=== PATIENT | male | born 1945 | race Caucasian/White ===

== ENCOUNTER 2022-08-07 02:19 | Emergency (ER) | payer MEDICARE, SELFPAY ==
[2022-08-07] VITALS (24 sets, daily range): BP systolic 80–159; BP diastolic 40–110; PULSE 65–92; RESP 16–25; O2SAT 95–100
--- NOTE | ~2022-08-07 | XR_ITS ---
CORRECTED REPORT Examination corrected. This report was recreated on 08/07/2022 at 8:05 CDT. Original report was signed by Brian Asher on 08/07/2022 at 8:05 CDT. 08/12/2022 sef EXAMINATION: XR chest ET placement INDICATION: Endotracheal tube placement TECHNIQUE: Portable AP chest at 0245 hours COMPARISON: None available FINDINGS: The endotracheal tube ends approximately 5.2 cm above the sarah. A nasogastric tube courses into the right mainstem bronchus and into the right lower lobe. There are diffuse interstitial opacities throughout all lung zones. The heart size is normal for technique. No pleural effusion or pneumothorax. IMPRESSION: 1. Diffuse lung disease, likely pulmonary edema. 2. Endotracheal tube approximately 5.2 cm above the sarah. 3. Nasogastric tube in the right lower lobe. Reviewed, dictated and finalized at location A. MTDD
--- NOTE | ~2022-08-07 | XR_ITS ---
EXAMINATION: XR chest 1V portable INDICATION: Cardiac arrest TECHNIQUE: Portable AP chest at 0318 hours COMPARISON: 0245 hours FINDINGS: A right subclavian central venous catheter is been inserted which ends with its tip in the proximal superior vena cava. The endotracheal tube ends approximately 4.5 cm above the sarah. There are diffuse interstitial opacities throughout the lungs. The heart size is normal for technique. No p leural effusion or pneumothorax. A dual-lead cardiac pacemaker of the left chest wall ends with leads in expected locations. IMPRESSION: 1. Right subclavian central venous catheter insertion ending in the proximal superior vena cava. 2. Diffuse lung disease, likely pulmonary edema. Reviewed, dictated and finalized at location A. IMPRESSION: 1. Right subclavian central venous catheter insertion ending in the proximal mason perior vena cava. 2. Diffuse lung disease, likely pulmonary edema.
--- NOTE | ~2022-08-07 | CT_ITS ---
EXAMINATION: CTA brain carotid DATE: 08/07/2022 04:51 INDICATION: Cardiac arrest, unresponsive TECHNIQUE: Computed tomographic angiography (CTA) of the head was performed without and with 100 mL O mnipaque-350 intravenous contrast. CTA of the neck was performed with intravenous contrast. The dose- length product was 1906.00 mGy-cm. Maximum intensity projection and volume rendered 3D-reconstruction s were created by the technologist on a separate workstation. Automated exposure control and iterativ e reconstruction technique were employed. COMPARISON: None. FINDINGS: HEAD CTA: There is a large acute hemorrhage in the left cerebellum which extends into the lateral cathy tricle and subarachnoid space of the left cerebellum. There is mass effect on the right cerebellum wi th 11 mm of [id number] midline shift. There is also mass effect on the brainstem with effacement o f the fourth ventricle. Changes in the globes are likely from ocular lens surgery. There is mild pro minence of the sulci and ventricles related to cerebral atrophy. Intracranial calcified cerebral athe rosclerosis is noted. There is no significant stenosis of the basilar artery or posterior cerebral arteries. There is no si gnificant stenosis of the intracranial internal carotid arteries or the anterior or middle cerebral a rteries. The anterior communicating artery and posterior communicating arteries are diminutive. There is no aneurysm. NECK CTA: The thyroid gland is unremarkable. The submandibular and parotid glands are symmetric. Ther e is no lymphadenopathy. There are no masses identified. An endotracheal tube is in expected position . A right subclavian central venous catheter ends with its tip in superior vena cava. There is severe emphysema and mild pulmonary edema. There is moderate cervical spondylosis. The superior mediastinum is unremarkable. There is 0% stenosis of the proximal right internal carotid artery relative to normal distal artery l umen diameter (NASCET criteria). There is 0% stenosis of the proximal left internal carotid artery re lative to normal distal artery lumen diameter. The right vertebral artery is diminutive. IMPRESSION: 1. 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 2. 0% stenosis of the proximal right internal carotid artery relative to normal distal artery lumen d iameter (NASCET criteria). 3. 0% stenosis of the proximal left internal carotid artery relative to normal distal artery lumen di ameter. These findings and recommendations were discussed with the Emergency Department at 0513 hours on 07/18 by the [facility] Radiologist. Reviewed, dictated and finalized at location A. IMPRESSION: 1. Large acute left cerebellar hemorrhage with mass effect on the right cerebel lum, brainstem, and fourth ventricle. 2. 0% stenosis of the proximal right internal carotid artery relative to normal distal artery lumen diameter (NASCET criteria). 3. 0% stenosis of the proximal left internal carotid artery relative to normal distal artery lumen diameter. These findings and recommendations were discussed with the Emergency Department at 0513 hours on 08/07/2022 by the [employer] Radiologist.
[2022-08-07] MEDS: MAGNESIUM SULF 2 GM/WATER 50ML 2 GM/50 ML BAG 400 GM (02:27)
--- NOTE | 2022-08-07 02:32 | ECG_ITS ---
Measurements Intervals [place] Rate: 167 P: [place]: 0 QRS: 114 QRSD: 122 T: 0 QT: 298 QTc: 497 Interpretive Statements ATRIAL FIBRILLATION WITH RAPID VENTRICULAR RESPONSE POSSIBLE RIGHT VENTRICULAR HYPERTROPHY [SOME/ALL OF: PROMINENT R IN V1, LATE TRANSITION, RAD, BERTRAM, SSS] LATERAL MYOCARDIAL INFARCTION , OF INDETERMINATE AGE [40+ ms Q WAVE AND/OR ST/T ABNORMALITY IN I/aVL/V5/V6] ST DEPRESSION, CONSIDER SUBENDOCARDIAL INJURY [0.1+ mV ST DEPRESSION] NO PREVIOUS ECG AVAILABLE FOR COMPARISON Electronically Signed On 08-07-2022 9:01:52 CDT by Nathalia Hendrickson M.D.
[2022-08-07 02:36] LABS: Alveolar/Arterial O2 Gradient 416.2 mmHg; Fractional Inspired Oxygen 100 %; HCO3 ABG 18.7 mEq/l (22.0-26.0); Oxygen Content ABG 27.4 %vol (16.0-22.0); Oxygen Saturation ABG 99.2 % (95.0-100.0); Oxyhemoglobin 97.9 % THb (90.0-100.0); PO2 ABG 236.6 mmHg (80.0-100.0); PO2 FiO2 Ratio Arterial Blood 2.37 %; Total Hemoglobin 19.6 g/dL (12.0-18.0)
[2022-08-07 02:39] LABS: Device AMBU BAG; Modified Allen's Test Pass; PCO2 ABG 60.2 mmHg (35.0-45.0); Site Drawn LEFT RADIAL; pH ABG 7.109 (7.350-7.450)
[2022-08-07] MEDS: NOREPINEPHRINE 8 MG/D5W 250 ML 8 MG/250 ML BAG 9.38 MG IV CONT (03:00)
[2022-08-07] MEDS: LORazepam INJ (*CRX) 2 MG/ML VIAL (03:06)
--- NOTE | 2022-08-07 03:15 | ECG_ITS ---
Measurements Intervals [place] Rate: 71 P: [place]: 0 QRS: 163 QRSD: 98 T: 95 QT: 402 QTc: 438 Interpretive Statements ATRIAL FIBRILLATION WITH ABERRANT CONDUCTION OR VENTRICULAR PREMATURE COMPLEXES (VERSUS VENTRICULAR PACING) MARKED RIGHT AXIS DEVIATION [QRS AXIS > 100] LOW QRS VOLTAGE IN EXTREMITY LEADS [QRS DEFLECTION < 0.5 mV IN LIMB LEADS] PATTERN CONSISTENT WITH PULMONARY DISEASE ST DEPRESSION, CONSIDER SUBENDOCARDIAL INJURY [0.1+ mV ST DEPRESSION] COMPARED TO THE PREVIOUS TRACING, ATRIAL FIBRILLATION RATE IS SLOWER. Electronically Signed On 08-07-2022 9:03:07 CDT by Nathalia Hendrickson M.D.
[2022-08-07 03:34] LABS: Amphetamine Screen Urine Negative (Negative); Barbiturate Screen Urine Negative (Negative); Benzodiazepines Screen Urine Negative (Negative); Cannabinoid Screen Urine Negative (Negative); Cocaine Screen Urine Negative (Negative); Methadone Screen Urine Negative (Negative); Opiate Screen Urine Negative (Negative); Phencyclidine Screen Urine Negative (Negative)
[2022-08-07 03:44] LABS: Basophils Absolute Auto 0.1 K/mm3 (0.0-0.1); Basophils Percent Auto 0.6 % (0.2-1.2); Eosinophils Absolute Auto 0.1 K/mm3 (0-0.3); Eosinophils Percent Auto 0.5 % (0-4.4); Hematocrit 49.9 % (42.0-52.0); Hemoglobin 16.5 g/dL (14.0-18.0); Immature Granulocyte Absolute 0.21 K/mm3 (0.00-0.031); Immature Granulocyte Percent A 1.2 % (0-0.5); Lymphocytes Absolute Auto 2.71 K/mm3 (0.9-3.2); Mean Corpuscular HGB Conc 33.1 g/dl (32-36); Mean Corpuscular Hemoglobin 30.5 pg (26-34); Mean Corpuscular Volume 92.2 fl (80-100); Mean Platelet Volume 9.5 fl (7.4-10.4); Monocytes Absolute Auto 0.9 K/mm3 (0.1-0.6); Monocytes Percent Auto 5.5 % (2.6-8.5); Neutrophils Absolute Auto 12.9 K/mm3 (1.3-6.7); Neutrophils Percent Auto 76.2 % (45.5-73.1); Platelet Count Result 256 k/mm3 (150-375); Red Blood Count 5.41 M/mm3 (4.6-6.20); Red Cell Distribution Width 13.8 % (11.5-14.5)
[2022-08-07 03:46] LABS: Lipase 71 U/L (23-300)
[2022-08-07] MEDS: HYDROmorphone HCL INJ (*CRX) 1 MG/ML SYR IV PUSH (03:50)
[2022-08-07 03:55] LABS: NT Pro B Type Natriuretic Pept 1120 pg/mL (5-100)
[2022-08-07] MEDS: FENTANYL 2,500MCG/NS250ML(*CRX 2,500 MCG/250 ML BAG 10 MCG IV CONT (03:55)
[2022-08-07 03:56] LABS: INR 2.7; Prothrombin Time 27.8 Seconds (11.1-14.7)
[2022-08-07 03:57] LABS: Partial Thromboplastin Time 42.4 SECONDS (22.3-36.8)
[2022-08-07 04:17] LABS: Alanine Aminotransferase 74 U/L (6-50); Albumin Level 3.7 g/dL (3.5-5.1); Alkaline Phosphatase 81 U/L (38-126); Anion Gap 10 mmol/L (8-16); Aspartate Amino Transferase 158 U/L (17-59); Bilirubin,Total 0.6 mg/dL (0.2-1.3); Blood Urea Nitrogen 22 mg/dL (9-20); Calcium 7.4 mg/dL (8.4-10.2); Carbon Dioxide 20 mmol/L (22-30); Chloride 105 mmol/L (98-107); Creatine Kinase 62 U/L (55-170); Estimated Glomerular Filt Rate > 60; Glucose 300 mg/dL (65-110); Magnesium 2.7 mg/dL (1.6-2.3); Potassium 3.9 mmol/L (3.4-5.0); Sodium 135 mmol/L (137-145)
[2022-08-07 04:29] LABS: Troponin I 0.013 ng/mL (0.000-0.034)
--- NOTE | 2022-08-07 05:16 | PC.NURSE ---
Addendum entered by Dotty Alcocer RN 08/07/22 06:31: 0216 PEA, no pulse palpable, CPR initiated. 0216 EMS 18 right AC PIV, not patent 0217 20G PIV started to wrist 0217 EPI given 0219 rhythm check, no pulse, CPR continued 0220Accu check BS 211, EPI given, REJI auto CPR applied and continued. [address] Cheng. 7.5, secured at 24 at the teeth. 0221 v-fib 0220 Pt defib at 200J, CPR continued 0223 EPI 0224.36v-fib, Defib at 200J 0226.11 rhythm v-fib, defib at 200J 0226.36 v-fib, defib at 200J 0226.46 v-fib, defib at 200J, Amino 300 IVP push. 0226 ROSC 0227 Mag 2GM IVPB started 0229 18G IVP Right wrist started; BP 165/99, SpO2 100%, 95 HR 18 RR 0233 VS: BP 135/84, SpO2 100%, 18 RR 0237 Repeated EKG 0240 VEnt setting at 24RR, Desat 50%, 500 5 peep, 100% 0255 Bolus 1000ML NS started per DR. Cheng 0300 Levo started at 50 mg/min 0302 Levo changed to 30mg/min 0306 Ativan 2mg IVP given 0307 Levo titrated to 20mg/min; central line placement at this time. Original Note: 0216 PEA, no pulse palpable, CPR initiated. 0216 EMS 18 right AC PIV, not patent 0217 20G PIV started to wrist 0217 EPI given 0219 rhythm check, no pulse, CPR continued 0220Accu check BS 211, EPI given, REJI auto CPR applied and continued. [address] Cheng. 7.5, secured at 24 at the teeth. 0221 v-fib 0220 Pt defib at 200J, CPR continued 0223 EPI 0224.36v-fib, Defib at 200J 0226.11 rhythm v-fib, defib at 200J 0226.36 v-fib, defib at 200J 0226.46 v-fib, defib at 200J, Amino 300 IVP push.
[2022-08-07] MEDS: PHYTONADIONE ADULT INJ 10 MG in DEXTROSE 5% IN WATER 50 ML 100 MG IVPB (05:20)
--- NOTE | 2022-08-07 05:39 | ED.GENADULT ---
HPI - General Adult General Chief complaint: Cardiac Arrest/CPR Stated complaint: critical pt Time Seen by Provider: 08/07/22 02:40 History of Present Illness HPI narrative: This is a 76-year-old male presenting to the ED for altered mental status. Patient is unresponsive and went into cardiac arrest quickly after he arrived. History obtained from the family said that he was acting normal until last night when he went to bed saying that he had a headache. The then found him later in the night walking around but unable to speak to her. He then became unresponsive and EMS brought him to the hospital. Review of Systems Review of Systems: ROS unobtainable: Yes unobtainable due to medical condition PMFSH Past Medical History Medical History (Updated 08/07/22 @ 06:05 by Kailash Cheng MD) Atrial fibrillation Surgical History Surgical History (Updated 08/07/22 @ 05:42 by Kailash Cheng MD) S/P ablation of atrial fibrillation Social History Social History (Updated 08/07/22 @ 05:42 by Kailash Cheng MD) Social History: Unable to obtain Exam Narrative: APPEARANCE: Patient is unresponsive, cyanotic Head atraumatic. EYES: PERRLA/EOMI, NOSE: Normal no drainage NECK: Supple, Trachea midline RESPIRATORY: tachypneic clear lung sounds. CARDIOVASCULAR: thready pulse ABDOMINAL: Soft, nontender, nondistended, MUSCULOSKELETAl: No obvious deformities NEURO: right-sided facial droop, unresponsive to pain and flaccid in all 4 extremities SKIN:: cyanotic PSYCHIATRIC: unresponsive Course Vital Signs Vital signs: Vital Signs Pulse Rate 91 08/07/22 02:49 Pulse Oximetry 100 08/07/22 02:49 Oxygen Delivery Mechanical Ventilation 08/07/22 02:49 Fraction of Inspired Oxygen 100 08/07/22 02:49 Pulse Rate 90 08/07/22 04:44 Respiratory Rate 16 08/07/22 03:55 Blood Pressure 80/40 L 08/07/22 03:00 Pulse Oximetry 100 08/07/22 04:44 Oxygen Delivery Mechanical Ventilation 08/07/22 04:44 Fraction of Inspired Oxygen 70 08/07/22 04:44 Procedures ABG Interpretation ABG Interpretation 1: ABG Results: ABG showed pH of 7.1 with an elevated CO2. Patient's respiratory rate was increased from 20-24. Interpretation: abnormal, respiratory acidosis and metabolic acidosis Central Line Placement Right SC: Performed Emergently - Given emergent patient condition, temporal constraints may have precluded informed consent.: Yes Time Out Performed: Yes Patient Placed on Monitor/Pulse Ox: Yes Max. Sterile Barrier Technique: Caps, large sterile sheet and hand hygiene Central Line Prep: 2% chlorhexidine scrub and sterile drapes applied Technique: seldinger Ultrasound Used for Placement: No Central Line Lumen Inserted: triple Post Procedure: sutured in place, good blood return, all ports aspirated, flushed, capped and sterile dressing applied Post Procedure X-Ray: tip of catheter in good position and no pneumothorax seen Patient Tolerated Procedure: no complications ( Psych continued to ooze. Sterility was broken to apply direct pressure. The stitch was placed around the incision site. Bleeding was eventually controlled.) Additional Comments: Line is no longer sterile and should be removed when medically feasible. EJ/Peripheral Line Arm L: Size (gauge): 18 IV Secured and Dressing Applied: Yes Patient Tolerated Procedure: well Additional Comments: 18 gauge IV placed by MD under emergent conditions. Arm R: Time Out Performed: No Skin Cleansed in Sterile Fashion: Yes Ultrasound Guided: No Size (gauge): 20 IV Secured and Dressing Applied: Yes Patient Tolerated Procedure: well Additional Comments: 20 gauge IV placed by MD under emergent conditions. Intubation Intubation #1: sedative: none Laryngoscope: other ( Zuly)
[2022-08-07] MEDS: HUMAN PROTHROMBIN COMPLEX(PCC) 2,500 UNITS in PREMIXIV 0 ML 504 UNITS IV CONT (05:44)
[2022-08-07 06:32] LABS: Reflex Lactic Acid Yes or No Add Lactic
--- NOTE | 2022-08-07 07:05 | PC.NURSE ---
see code blue charting paper.
== END 2022-08-07 06:06 | disposition short-term general hospital (02) ==
PROVIDERS: Emergency Provider Emergency Medicine
DX: I61.4 Nontraumatic intracerebral hemorrhage in cerebellum (principal); I48.91 Unspecified atrial fibrillation; I95.9 Hypotension, unspecified; I46.9 Cardiac arrest, cause unspecified; Z79.01 Long term (current) use of anticoagulants; J98.4 Other disorders of lung; R94.31 Abnormal electrocardiogram [ECG] [EKG]; I49.01 Ventricular fibrillation
CPT/HCPCS: 36415; 36556; 36600; 51702; 70496; 70498; 71045; 80053; 80307; 82550; 82805; 83605; 83690; 83735; 83880; 84484; 85025; 85380; 85610; 85730; 87040; 87086; 87147; 87181; 87186; 92950; 93005; 96365; 96366; 96367; 96368; 96375; 99291; C1751; J0171; J0282; J1170; J2060; J3010; J3430; J3475; J7030; J7060; J7168; Q9967